=== PATIENT | male | born 2005 | race Caucasian/White ===

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

== ENCOUNTER 2025-01-08 13:32 | Day surgery (SDC) | payer OTHER ==
[~2025-01-08] VITALS: Ht 185.4 cm; Wt 68.6 kg
[2025-01-08] MEDS: LR 1,000 ML IV SCH (13:45)
[2025-01-08] MEDS: ACETAMINOPHEN 325 MG TAB PO ONE (14:28)
[2025-01-08] MEDS: CelecoXIB 400 MG CAP PO ONE (14:28)
[2025-01-08] MEDS ORDERED: MAGN120C3 PO (14:32)
[2025-01-08] MEDS ORDERED: ALLE10TA62 PO (14:32)
[2025-01-08] MEDS ORDERED: ROCURONIUM BROMIDE 50MG/5ML VIAL As Ordered ONE (16:48)
[2025-01-08] MEDS ORDERED: LIDOCAINE 2% 100 MG/5 ML SDV (FOR ANES.) As Ordered ONE (16:49)
[2025-01-08] MEDS ORDERED: ONDANSETRON 4MG 2ML VIAL As Ordered ONE (16:50)
[2025-01-08] MEDS ORDERED: dexAMETHasone 4 MG/ML 1 ML VIAL As Ordered ONE (16:50)
[2025-01-08] MEDS ORDERED: KETOROLAC 30 MG/ML 1 ML VIAL As Ordered ONE (16:51)
[2025-01-08] MEDS ORDERED: MIDAZOLAM INJ 2 MG/2 ML VIAL As Ordered ONE (17:35)
[2025-01-08] MEDS ORDERED: LIDOCAINE 1% SDV 30 ML VIAL As Ordered ONE (17:35)
[2025-01-08] MEDS: ceFAZolin SOD 2 GM IV ONCE IV ONE (17:50)
[2025-01-08] MEDS ORDERED: ACETAMINOPHEN 1000MG/100ML IV BAG As Ordered ONE (18:20)
[2025-01-08] MEDS ORDERED: LR 1,000 ML IV SCH (19:30)
[2025-01-08] MEDS ORDERED: diphenhydrAMINE 50 MG/ML VIAL IV PRN (19:30)
[2025-01-08] MEDS ORDERED: HYDROMORPHONE HCL 0.5 MG/0.5 ML SYRINGE IV PRN (19:30)
[2025-01-08] MEDS ORDERED: HYDR-3713 PO (19:50)
[2025-01-08 20:18] VITALS: BP 133/78; TEMP 97.7; O2SAT 100
== END 2025-01-08 20:58 | disposition home or self-care (01) ==
LOC: M SDC 13:32
PROVIDERS: ATTEND Surgery
DX: K40.90 Unilateral inguinal hernia, without obstruction or gangrene, not specified as recurrent (principal)
CPT/HCPCS: 49650; C1781; J0131; J0665; J0690; J1100; J1885; J2250; J2405; J3010; S2900